=== PATIENT | male | born 1960 | race African-American/Black ===

== ENCOUNTER 2018-01-19 09:12 | Emergency (ER) | payer OTHER ==
[~2018-01-19] VITALS: Ht 172.7 cm; Wt 119.8 kg
[2018-01-19] MEDS ORDERED: OXYCONTIN10 M1 PO ×2 (09:24→09:34)
[2018-01-19] MEDS ORDERED: GABAPENTIN 100100 MG PO (09:33)
[2018-01-19] MEDS ORDERED: CELEXA10 MG PO (09:33)
[2018-01-19] MEDS ORDERED: KEFLEX500 M1 PO (12:08)
[2018-01-19 12:59] VITALS: BP 143/97
== END 2018-01-19 12:59 | disposition home or self-care (01) ==
LOC: ER 09:12
DX: S61.401A Unspecified open wound of right hand, initial encounter (principal); S30.0XXA Contusion of lower back and pelvis, initial encounter; S30.1XXA Contusion of abdominal wall, initial encounter; M79.89 Other specified soft tissue disorders; Z88.8 Allergy status to other drugs, medicaments and biological substances; V49.50XA Passenger injured in collision with unspecified motor vehicles in traffic accident, initial encounter; Y93.89 Activity, other specified; Y92.89 Other specified places as the place of occurrence of the external cause; Y99.8 Other external cause status

== ENCOUNTER 2018-05-15 19:14 | Inpatient (IN) | payer OTHER ==
[~2018-05-15] VITALS: Ht 172.7 cm; Wt 117.0 kg
--- NOTE | ~2018-05-15 | 2DMMODE ---
[facility] [employer] [place] [address] 2 D/M-MODE ECHOCARDIOGRAM Name: SHARLENE NINO Room #: 363-P ADM IN .R.#: [id number] Admission: 05/15/18 Attend Phys: Lakeisha Vera MD Discharge: Date of : 58 Date of Service: 05/17/18 0934 Report #: [id number] THIS REPORT FOR: //name// APPROVED REPORT Study performed: 05/17/2018 08:15:23 EXAM: Comprehensive 2D, Doppler, and color-flow Echocardiogram Patient Location: In-Patient Room #: 363 Status: routine BSA: 2.28 HR: 57 bpm BP: 147/94 mmHg Other Information Study Quality: Adequate Indications Chest Pain Hypertension/HDD 2D Dimensions RVDd: 34.07 mm IVSd: 13.57 (7-11mm) LVOT Diam: 25.57 (18-24mm) LVDd: 53.20 mm PWd: 14.41 (7-11mm) Ascending Ao: 32.58 (22-36mm) LVDs: 39.12 (25-40mm) Aortic Root: 35.16 mm IVC: 20.00 mm Volumes Left Atrial Volume (Systole) Single Plane 4CH: 29.34 mL Single Plane 2CH: 66.65 mL LA ESV Index: 22.00 mL/m2 Aortic Valve AoV Peak Ramiro.: 1.23 m/s AO Peak Gr.: 6.04 mmHg LVOT Max P.83 mmHg LVOT Max V: 0.84 m/s RICHI Vmax: 3.51 cm2 Mitral Valve E/A Ratio: 0.7 MV Decel. Time: 339.82 ms MV E Max Ramiro.: 0.48 m/s [facility] [address] [place] [address] 2 D/M-MODE ECHOCARDIOGRAM Name: SHARLENE NINO Room #: 363[facility] IN .R.#: [id number] Admission: 05/15/18 Attend Phys: Lakeisha Vera MD Discharge: Date of : 58 Date of Service: 05/17/18 0934 Report #: [id number] MV A Ramiro.: 0.69 m/s MV PHT: 98.55 ms IVRT: 138.41 ms Pulmonary Valve PV Peak Ramiro.: 1.10 m/s PV Peak Gr.: 4.86 mmHg Pulmonary Vein P Vein S: 0.60 m/s P Vein A: 0.24 m/s P Vein D: 0.38 m/s P Vein A Dur.: 124.6 msec P Vein S/D Ratio: 1.58 Tricuspid Valve TR Peak Ramiro.: 2.89 m/s RAP Estimate: 5.00 mmHg TR Peak Gr.: 33.30 mmHg PA Pressure: 38.00 mmHg Left Ventricle The left ventricle is normal size. Mild to moderate concentric left ventricular hypertrophy. The left ventricular systolic function is normal. The left ventricular ejection fraction is within the normal range. LVEF is 55%. Mild diastolic dysfunction is present (impaired relaxation pattern). Right Ventricle The right ventricle is normal size. The right ventricular systolic function is normal. Atria The left atrium size is normal. The right atrium size is normal. Aortic Valve The aortic valve is normal in structure. No aortic regurgitation is present. There is no aortic valvular stenosis. Mitral Valve The mitral valve is normal in structure. Trace to mild mitral regurgitation. No evidence of mitral valve stenosis. Tricuspid Valve The tricuspid valve is normal in structure. Trace tricuspid regurgitation. PAP is estimated at 38 mmHg. Pulmonic Valve The pulmonary valve is normal in structure. Trace to mild pulmonic [address] [address] 2 D/M-MODE ECHOCARDIOGRAM Name: TRUNGSHARLENE Room #: 363-P [facility] IN ..#: [id number] Admission: 05/15/18 Attend Phys: Lakeisha Vera MD Discharge: Date of : 58 Date of Service: 05/17/18 0934 Report #: [id number] regurgitation. Great Vessels The aortic root is normal in size. IVC is normal in size and collapses >50% with inspiration. Pericardium There is no pericardial effusion. <Conclusion> The left ventricle is normal size. Mild to moderate concentric left ventricular hypertrophy. The left ventricular systolic function is normal. Mild diastolic dysfunction is present (impaired relaxation pattern). The right ventricle is normal size. The left atrium size is normal. The right atrium size is normal. The aortic valve is normal in structure. Trace to mild mitral regurgitation. Trace tricuspid regurgitation. PAP is estimated at 38 mmHg. <ELECTRONICALLY SIGNED> By: Christiano Rey MD 05/17/18933 3 3 Christiano Rey MD /INF
--- NOTE | ~2018-05-15 | EKG ---
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 : 1960 Requested By: Ky Sargent Order Number: [id number] MD: Benedicto Willett Measurements Intervals [place] Rate: 101 P: 40 [place]: 192 QRS: 3 QRSD: 106 T: 86 QT: 366 QTc: 475 Interpretive Statements Sinus tachycardia Abnormal R-wave progression, late transition Nonspecific T abnormalities, lateral leads No previous ECG available for comparison Electronically Signed On 05-17-2018 17:33:43 CDT by Benedicto Willett [email or web address] <ELECTRONICALLY SIGNED> By: Benedicto Willett MD 05/17/18 1733 41 41 Benedicto Willett MD /VALERIE
[~2018-05-15 19:14] MED LIST: CELEXA10 MG PO; GABAPENTIN 100100 MG PO; KEFLEX500 M1 PO; OXYCONTIN10 M1 PO
[2018-05-15 19:16] VITALS: BP 143/96
[2018-05-15 19:48] LABS: HEMATOCRIT 37.3 % (42.0-52.0); HEMOGLOBIN 12.7 gm/dL (14.0-18.0); MCH 29.4 pg (26.0-34.0); MCHC 34.2 g/dL (28.0-37.0); MCV 85.9 fL (80.0-100.0); RBC 4.34 mil/uL (4.50-6.00); RDW 14.8 % (10.5-14.5); WBC 7.4 thou/uL (4.0-11.0)
[2018-05-15 19:57] LABS: ANION GAP 12 mmol/L (7-16); BUN 13 mg/dL (7-18); CALCIUM 10.1 mg/dL (8.5-10.1); CHLORIDE 104 mmol/L (98-107); CO2 25 mmol/L (21-32); CREATININE 1.9 mg/dL (0.7-1.3); GLUCOSE 124 mg/dL (74-106); POTASSIUM 3.1 mmol/L (3.5-5.1); SODIUM 141 mmol/L (136-145)
[2018-05-15 20:06] LABS: ALBUMIN 3.3 g/dL (3.4-5.0); SGOT 12 U/L (15-37); SGPT 17 U/L (30-65); TOTAL BILIRUBIN 0.3 mg/dL (<0.1-1.0); TOTAL PROTEIN 8.4 g/dL (6.4-8.2); TROPONIN-I <0.06 ng/mL (<0.06)
[2018-05-15 22:07] VITALS: BP 156/87
[2018-05-15 22:08] VITALS: BP 156/87
[2018-05-15 22:11] VITALS: BP 156/87
[2018-05-15 22:20] VITALS: BP 119/79
[2018-05-15] MEDS ORDERED: ALPRAZOLAM ER1 MG PO (23:01)
[2018-05-16 00:30] VITALS: BP 135/90
[2018-05-16 02:38] LABS: CALCIUM 10.1 mg/dL (8.5-10.1); CREATININE 1.4 mg/dL (0.7-1.3); MAGNESIUM 2.2 mg/dL (1.8-2.4); POTASSIUM 3.4 mmol/L (3.5-5.1)
[2018-05-16 02:43] LABS: CHOLESTEROL 203 mg/dL (<200); HDL CHOLESTEROL 36 mg/dL (>40); LDL CHOLESTEROL 147 mg/dL (<100); TC:HDL 5.6 Ratio (Not establshd); TRIGLYCERIDE 100 mg/dL (<150); VLDL 20 mg/dL (<40)
[2018-05-16 02:44] LABS: SERUM ASSESSMENT Clear
[2018-05-16 04:40] VITALS: BP 129/76
[2018-05-16 07:07] VITALS: BP 136/92
[2018-05-16 11:26] VITALS: BP 138/87
[2018-05-16 15:13] VITALS: BP 149/94
[2018-05-16 20:27] VITALS: BP 147/100
[2018-05-16 22:09] LABS: GLYCOHEMOGLOBIN (HGB A1C) 5.8 % (4.8-5.6)
[2018-05-17] VITALS: BP 134/93
[2018-05-17 03:40] VITALS: BP 147/94
[2018-05-17 07:53] VITALS: BP 134/82
[2018-05-17 11:13] VITALS: BP 133/98
[2018-05-17 16:10] VITALS: BP 149/94
[2018-05-17 19:41] VITALS: BP 120/74
[2018-05-18 04:25] VITALS: BP 118/82
[2018-05-18 06:44] LABS: AMP/METHAMP POSITIVE (Negative); BARBITURATES Negative (Negative); BENZODIAZEPINES POSITIVE (Negative); COCAINE Negative (Negative); METHADONE Negative (Negative); OPIATES Negative (Negative); PCP POSITIVE (Negative)
[2018-05-18 08:15] VITALS: BP 138/955
[2018-05-18 12:00] VITALS: BP 154/87
[2018-05-18 20:25] VITALS: BP 144/80
[2018-05-19 04:40] VITALS: BP 144/93
[2018-05-19 07:32] VITALS: BP 135/96
[2018-05-19 11:47] VITALS: BP 118/89
[2018-05-19] MEDS ORDERED: LIPITOR 20 MG T20 M1 PO (14:23)
[2018-05-19] MEDS ORDERED: NEURONTIN 300300 M1 PO (14:23)
[2018-05-19] MEDS ORDERED: ASPIR 8181 MG PO (14:23)
[2018-05-19] MEDS ORDERED: LEXAPRO20 MG PO (14:23)
[2018-05-19] MEDS ORDERED: HOME MEDICATION PO ×2 (15:00→15:43)
[2018-05-19 16:17] VITALS: BP 118/89
== END 2018-05-19 17:29 | disposition home or self-care (01) | DRG 684 ==
LOC: ER 19:14 → 3W 20:54 → EROBS 20:54 → 3W 22:25
PROVIDERS: Emergency Medicine; Nurse Practitioner Acute Care
DX: N17.0 Acute kidney failure with tubular necrosis (principal); R07.89 Other chest pain; R00.0 Tachycardia, unspecified; I10 Essential (primary) hypertension; E78.5 Hyperlipidemia, unspecified; M19.90 Unspecified osteoarthritis, unspecified site; Z96.642 Presence of left artificial hip joint; F41.9 Anxiety disorder, unspecified; F17.210 Nicotine dependence, cigarettes, uncomplicated; F12.90 Cannabis use, unspecified, uncomplicated; E87.6 Hypokalemia; G47.33 Obstructive sleep apnea (adult) (pediatric); Z91.041 Radiographic dye allergy status; Z82.49 Family history of ischemic heart disease and other diseases of the circulatory system; Z83.6 Family history of other diseases of the respiratory system; Z79.899 Other long term (current) drug therapy
CPT/HCPCS: 10879

== ENCOUNTER 2018-08-10 21:05 | Emergency (ER) | payer OTHER ==
[~2018-08-10] VITALS: Ht 172.7 cm; Wt 117.9 kg
--- NOTE | ~2018-08-10 | EKG ---
[address] [employer] [place] [address] ELECTROCARDIOGRAM REPORT Name: SHARLENE NINO 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 : 1960 Requested By: Ale Prado Order Number: [id number] MD: Luis E Sabillon Measurements Intervals [place] Rate: 71 P: 51 [place]: 203 QRS: 12 QRSD: 98 T: 47 QT: 565 QTc: 615 Interpretive Statements Sinus arrhythmia Borderline prolonged [place] interval Nonspecific ST and T wave abnormality Prolonged QT interval Baseline wander in lead(s) V1,V2 Compared to ECG 05/15/2018 19:42:49 Prolonged QT interval now present Nonspecific change in the ST and T-wave segments Electronically Signed On 08-11-2018 7:53:14 [employer]AMP COUNSELOR by Luis E Sabillon [email or web address] <ELECTRONICALLY SIGNED> By: Luis E Sabillon MD, [facility] 08/11/18 0753 03 03 Luis E Sabillon MD, [facility] /EPI
[~2018-08-10 21:05] MED LIST changes: +ALPRAZOLAM ER1 MG PO; +ASPIR 8181 MG PO; +HOME MEDICATION PO; +LEXAPRO20 MG PO; +LIPITOR 20 MG T20 M1 PO; +NEURONTIN 300300 M1 PO
[2018-08-10 22:13] LABS: ABSOLUTE NEUTROPHILS 3.5 thou/uL (1.4-8.2); BASOPHILS 0.5 % (0.0-2.0); EOSINOPHILS 3.5 % (0.0-3.0); HEMATOCRIT 39.2 % (42.0-52.0); MCH 29.5 pg (26.0-34.0); MCHC 33.3 g/dL (28.0-37.0); MCV 88.7 fL (80.0-100.0); MONOCYTES 8.3 % (1.0-8.0); PLATELET COUNT 203 thou/uL (150-400); POLYS 49.7 % (36.0-66.0); RBC 4.42 mil/uL (4.50-6.00); RDW 15.1 % (10.5-14.5); WBC 7.1 thou/uL (4.0-11.0)
[2018-08-10 22:17] LABS: ANION GAP 8 mmol/L (7-16); BUN 9 mg/dL (7-18); CALCIUM 9.7 mg/dL (8.5-10.1); CHLORIDE 105 mmol/L (98-107); CO2 29 mmol/L (21-32); CREATININE 1.2 mg/dL (0.7-1.3); GLUCOSE 126 mg/dL (74-106); POTASSIUM 3.6 mmol/L (3.5-5.1); SODIUM 142 mmol/L (136-145)
[2018-08-10 22:26] LABS: ALBUMIN 3.1 g/dL (3.4-5.0); SGOT 15 U/L (15-37); SGPT 25 U/L (30-65); TOTAL BILIRUBIN 0.4 mg/dL (<0.1-1.0); TOTAL PROTEIN 7.9 g/dL (6.4-8.2); TROPONIN-I <0.06 ng/mL (<0.06)
[2018-08-10] MEDS ORDERED: PREDNISONE 20 M20 MG PO (23:12)
[2018-08-10] MEDS ORDERED: VENTOLIN HFA 1818 GM INH (23:12)
[2018-08-10] MEDS ORDERED: AZITHROMYCIN 2250 MG PO (23:12)
[2018-08-10 23:22] VITALS: BP 133/77
== END 2018-08-10 23:23 | disposition home or self-care (01) ==
LOC: ER 21:05
PROVIDERS: Nurse Practitioner Family
DX: J18.9 Pneumonia, unspecified organism (principal); M54.9 Dorsalgia, unspecified; I10 Essential (primary) hypertension; E78.5 Hyperlipidemia, unspecified; G47.30 Sleep apnea, unspecified; M19.90 Unspecified osteoarthritis, unspecified site; F41.9 Anxiety disorder, unspecified; F17.210 Nicotine dependence, cigarettes, uncomplicated; Z91.041 Radiographic dye allergy status; Z88.6 Allergy status to analgesic agent

== ENCOUNTER 2018-09-07 12:41 | Emergency (ER) | payer OTHER ==
[~2018-09-07] VITALS: Ht 167.6 cm; Wt 117.9 kg
[~2018-09-07 12:41] MED LIST changes: +AZITHROMYCIN 2250 MG PO; +PREDNISONE 20 M20 MG PO; +VENTOLIN HFA 1818 GM INH
[2018-09-07 14:40] LABS: ABSOLUTE NEUTROPHILS 3.6 thou/uL (1.4-8.2); BASOPHILS 1.3 % (0.0-2.0); EOSINOPHILS 3.4 % (0.0-3.0); HEMATOCRIT 38.8 % (42.0-52.0); HEMOGLOBIN 12.5 gm/dL (14.0-18.0); LYMPHOCYTES 31.6 % (24.0-44.0); MCH 28.8 pg (26.0-34.0); MCHC 32.4 g/dL (28.0-37.0); MCV 88.9 fL (80.0-100.0); MONOCYTES 10.6 % (1.0-8.0); PLATELET COUNT 219 thou/uL (150-400); POLYS 53.1 % (36.0-66.0); RBC 4.36 mil/uL (4.50-6.00); WBC 6.8 thou/uL (4.0-11.0)
[2018-09-07 14:41] LABS: ANION GAP 9 mmol/L (7-16); BUN 14 mg/dL (7-18); CALCIUM 9.4 mg/dL (8.5-10.1); CHLORIDE 102 mmol/L (98-107); CO2 27 mmol/L (21-32); CREATININE 1.2 mg/dL (0.7-1.3); GLUCOSE 92 mg/dL (74-106); POTASSIUM 4.1 mmol/L (3.5-5.1); SODIUM 138 mmol/L (136-145)
[2018-09-07 14:49] LABS: ALBUMIN 3.3 g/dL (3.4-5.0); SGOT 73 U/L (15-37); SGPT 47 U/L (30-65); TOTAL BILIRUBIN 0.2 mg/dL (<0.1-1.0); TOTAL PROTEIN 8.1 g/dL (6.4-8.2); TROPONIN-I <0.06 ng/mL (<0.06)
[2018-09-07 15:06] VITALS: BP 139/96
[2018-09-07] MEDS ORDERED: MUCINEX600 MG PO (15:09)
[2018-09-07] MEDS ORDERED: AFRIN30 ML NASAL (15:09)
== END 2018-09-07 15:16 | disposition home or self-care (01) ==
LOC: ER 12:41
PROVIDERS: Physician Assistant
DX: J06.9 Acute upper respiratory infection, unspecified (principal); F17.210 Nicotine dependence, cigarettes, uncomplicated; I10 Essential (primary) hypertension; E78.5 Hyperlipidemia, unspecified; G47.30 Sleep apnea, unspecified; F41.9 Anxiety disorder, unspecified; M19.90 Unspecified osteoarthritis, unspecified site; Z91.041 Radiographic dye allergy status; Z88.6 Allergy status to analgesic agent

== ENCOUNTER 2018-12-07 06:32 | Emergency (ER) | payer OTHER ==
[~2018-12-07] VITALS: Ht 172.7 cm; Wt 129.3 kg
[~2018-12-07 06:32] MED LIST changes: +AFRIN30 ML NASAL; +MUCINEX600 MG PO
[2018-12-07 07:17] LABS: ABSOLUTE NEUTROPHILS 3.9 thou/uL (1.4-8.2); BASOPHILS 0.9 % (0.0-2.0); EOSINOPHILS 2.1 % (0.0-3.0); HEMATOCRIT 35.7 % (42.0-52.0); HEMOGLOBIN 12.2 gm/dL (14.0-18.0); LYMPHOCYTES 35.4 % (24.0-44.0); MCH 29.8 pg (26.0-34.0); MCHC 34.2 g/dL (28.0-37.0); MCV 87.2 fL (80.0-100.0); MONOCYTES 7.6 % (1.0-8.0); PLATELET COUNT 209 thou/uL (150-400); RDW 14.4 % (10.5-14.5); WBC 7.3 thou/uL (4.0-11.0)
[2018-12-07 07:24] LABS: ANION GAP 9 mmol/L (7-16); BUN 14 mg/dL (7-18); CALCIUM 9.9 mg/dL (8.5-10.1); CHLORIDE 104 mmol/L (98-107); CO2 27 mmol/L (21-32); CREATININE 1.3 mg/dL (0.7-1.3); GLUCOSE 106 mg/dL (74-106); POTASSIUM 3.8 mmol/L (3.5-5.1); SODIUM 140 mmol/L (136-145)
[2018-12-07 07:33] LABS: TROPONIN-I <0.06 ng/mL (<0.06)
[2018-12-07 07:43] VITALS: BP 121/74
--- NOTE | 2018-12-07 08:14 | EKG ---
[place] [address] 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1960 Requested By: Jonatan Hernandez Order Number: [id number] MD: Benedicto Willett Measurements Intervals [place] Rate: 69 P: 73 [place]: 186 QRS: 0 QRSD: 105 T: 11 QT: 404 QTc: 433 Interpretive Statements Sinus rhythm Borderline T wave abnormalities Baseline wander in lead(s) III Compared to ECG 08/10/2018 22:04:38 T-wave abnormality now present Sinus arrhythmia no longer present ST (T wave) deviation no longer present Prolonged QT interval no longer present Electronically Signed On 12-07-2018 8:14:34 CDT by Benedicto Willett [email or web address] ��������������������������������������������� <ELECTRONICALLY SIGNED> ���������������������������������������� By: Benedicto Willett MD ��������������������������������������������� 12/07/18 0814 0641 0641 Benedicto Willett MD /EPI
== END 2018-12-07 07:43 | disposition home or self-care (01) ==
LOC: ER 06:32
PROVIDERS: Emergency Medicine
DX: R53.1 Weakness (principal); F17.210 Nicotine dependence, cigarettes, uncomplicated; I10 Essential (primary) hypertension; E78.5 Hyperlipidemia, unspecified; G47.30 Sleep apnea, unspecified; M19.90 Unspecified osteoarthritis, unspecified site; F41.9 Anxiety disorder, unspecified; J42 Unspecified chronic bronchitis; Z91.041 Radiographic dye allergy status; Z88.6 Allergy status to analgesic agent

== ENCOUNTER 2019-12-26 20:52 | Emergency (ER) | payer OTHER ==
[~2019-12-26] VITALS: Ht 172.7 cm; Wt 136.1 kg
[2019-12-26 21:28] LABS: ABSOLUTE NEUTROPHILS 3.6 thou/uL (1.4-8.2); BASOPHILS 0.8 % (0.0-2.0); EOSINOPHILS 2.6 % (0.0-3.0); HEMATOCRIT 35.6 % (42.0-52.0); HEMOGLOBIN 11.8 gm/dL (14.0-18.0); LYMPHOCYTES 35.5 % (24.0-44.0); MCH 29.6 pg (26.0-34.0); MCHC 33.2 g/dL (28.0-37.0); MONOCYTES 7.6 % (1.0-8.0); PLATELET COUNT 198 thou/uL (150-400); POLYS 53.5 % (36.0-66.0); RDW 15.7 % (10.5-14.5); WBC 6.7 thou/uL (4.0-11.0)
[2019-12-26 21:39] LABS: CALCIUM 9.1 mg/dL (8.5-10.1); CREATININE 1.3 mg/dL (0.7-1.3); POTASSIUM 3.6 mmol/L (3.5-5.1)
[2019-12-26 21:45] LABS: ALBUMIN 2.9 g/dL (3.4-5.0); TOTAL BILIRUBIN 0.2 mg/dL (<0.1-1.0); TOTAL PROTEIN 7.2 g/dL (6.4-8.2)
[2019-12-26 22:39] VITALS: BP 154/98
--- NOTE | 2019-12-27 08:01 | EKG ---
[facility] [place] [address] ELECTROCARDIOGRAM REPORT Name: SHARLENE NINO Room [facility]: [facility]#: [id number] Admission: 12/26/19 Attend Phys: Discharge: 12/26/19 Date of : 58 Report #: [id number] THIS REPORT FOR: cc: ALEXANDER - No family physician/PCP ALEXANDER - No family physician/PCP Luis E Sabillon MD [facility] THIS REPORT FOR: //name// [facility] ED Test Date: 2019-12-26 Test Time: 21:11:01 Pat Name: SHARLENE NINO Department: Room: Gender: Escort Patients: [facility] : 1960 Requested By: Dread Vogel Order Number: [id number] MD: Luis E Sabillon Measurements Intervals [place] Rate: 88 P: 57 [place]: 190 QRS: 12 QRSD: 101 T: 102 QT: 440 QTc: 533 Interpretive Statements Sinus rhythm Nonspecific T abnrm Prolonged QT interval Compared to ECG 12/07/2018 06:41:37 Prolonged QT interval now present Electronically Signed On 12-27-2019 7:59:21 CDT by Luis E Sabillon [email or web address] <ELECTRONICALLY SIGNED> By: Luis E Sabillon MD, FAC 12/27/19 0759 10 10 Luis E Sabillon MD, [facility] /EPI
== END 2019-12-26 22:39 | disposition home or self-care (01) ==
LOC: ER 20:52
PROVIDERS: Emergency Medicine
DX: S06.0X0A Concussion without loss of consciousness, initial encounter (principal); S16.1XXA Strain of muscle, fascia and tendon at neck level, initial encounter; M54.9 Dorsalgia, unspecified; R07.89 Other chest pain; I10 Essential (primary) hypertension; E78.5 Hyperlipidemia, unspecified; M19.90 Unspecified osteoarthritis, unspecified site; F17.210 Nicotine dependence, cigarettes, uncomplicated; Z88.6 Allergy status to analgesic agent; V47.5XXA Car driver injured in collision with fixed or stationary object in traffic accident, initial encounter; Y93.89 Activity, other specified; Y92.89 Other specified places as the place of occurrence of the external cause; Y99.8 Other external cause status

== ENCOUNTER 2020-04-23 13:09 | Emergency (ER) | payer OTHER ==
[~2020-04-23] VITALS: Ht 170.2 cm; Wt 117.9 kg
[2020-04-23] MEDS ORDERED: LATUDA20 MG PO (13:27)
[2020-04-23] MEDS ORDERED: ASA81BEC PO (13:27)
[2020-04-23 15:42] VITALS: BP 121/93
== END 2020-04-23 15:42 | disposition home or self-care (01) ==
LOC: ER 13:09
DX: S93.401A Sprain of unspecified ligament of right ankle, initial encounter (principal); F10.920 Alcohol use, unspecified with intoxication, uncomplicated; M79.641 Pain in right hand; I10 Essential (primary) hypertension; E78.5 Hyperlipidemia, unspecified; M19.90 Unspecified osteoarthritis, unspecified site; F41.9 Anxiety disorder, unspecified; Z98.890 Other specified postprocedural states; F17.210 Nicotine dependence, cigarettes, uncomplicated; Z79.899 Other long term (current) drug therapy; Z79.82 Long term (current) use of aspirin; Z91.041 Radiographic dye allergy status; Z88.6 Allergy status to analgesic agent; X50.1XXA Overexertion from prolonged static or awkward postures, initial encounter; Y93.89 Activity, other specified; Y92.89 Other specified places as the place of occurrence of the external cause; Y99.8 Other external cause status

== ENCOUNTER 2020-04-24 15:14 | Emergency (ER) | payer OTHER ==
[~2020-04-24] VITALS: Ht 170.2 cm; Wt 114.3 kg
[~2020-04-24 15:14] MED LIST changes: +ASA81BEC PO; +LATUDA20 MG PO
[2020-04-24 17:04] VITALS: BP 138/78
== END 2020-04-24 17:04 | disposition home or self-care (01) ==
LOC: ER 15:14
DX: S93.601A Unspecified sprain of right foot, initial encounter (principal); I10 Essential (primary) hypertension; E78.5 Hyperlipidemia, unspecified; F17.210 Nicotine dependence, cigarettes, uncomplicated; Z79.82 Long term (current) use of aspirin; Z79.899 Other long term (current) drug therapy; Z88.8 Allergy status to other drugs, medicaments and biological substances; Z91.048 Other nonmedicinal substance allergy status; X58.XXXA Exposure to other specified factors, initial encounter; Y93.89 Activity, other specified; Y92.89 Other specified places as the place of occurrence of the external cause; Y99.8 Other external cause status

== ENCOUNTER 2020-10-31 16:01 | Emergency (ER) | payer OTHER ==
[~2020-10-31] VITALS: Ht 170.2 cm; Wt 117.9 kg
[2020-10-31] MEDS ORDERED: NORCO5 PO (21:24)
[2020-10-31] MEDS ORDERED: NORVASC10 MG PO (21:24)
[2020-10-31 21:53] VITALS: BP 167/123
== END 2020-10-31 21:59 | disposition home or self-care (01) ==
LOC: ER 16:01
DX: R04.0 Epistaxis (principal); I10 Essential (primary) hypertension; E78.5 Hyperlipidemia, unspecified; F17.210 Nicotine dependence, cigarettes, uncomplicated; Z79.82 Long term (current) use of aspirin; Z79.899 Other long term (current) drug therapy; Z88.8 Allergy status to other drugs, medicaments and biological substances